=== PATIENT | female | born 1980 | race Caucasian/White ===

== ENCOUNTER 2021-11-26 08:21 | Emergency (ER) | payer BC ==
[~2021-11-26] VITALS: Ht 165.1 cm; Wt 63.5 kg
[2021-11-26] MEDS ORDERED: HYDROCODONE/APAP 5/325MG TABLET ONE (10:28)
[2021-11-26] MEDS ORDERED: LORAZEPAM 1 MG TABLET ONE (10:28)
[2021-11-26] MEDS ORDERED: LORAZEPAM 1 MG TABLET PO ONE (10:30)
[2021-11-26] MEDS ORDERED: HYDROCODONE/APAP 5/325MG TABLET PO ONE (10:30)
[2021-11-26 10:43] LABS: BASOPHILS # (AUTO) 0.1 K/uL (0.0-0.2); BASOPHILS % (AUTO) 1.4 % (0.0-2.0); EOSINOPHILS % (AUTO) 0.9 % (0.0-6.0); HEMATOCRIT 40 % (33-45); HEMOGLOBIN 13.4 g/dL (11.5-14.8); LYMPHOCYTES # (AUTO) 1.5 K/uL (0.8-4.8); LYMPHOCYTES % (AUTO) 21.9 % (20.0-44.0); MEAN CORPUSCULAR HGB CONC 34 g/dl (31.0-36.0); MEAN CORPUSCULAR VOLUME 103 fL (82-100); MONOCYTES # (AUTO) 0.7 K/uL (0.1-1.30); MONOCYTES % (AUTO) 9.5 % (2.0-12.0); NEUTROPHILS # (AUTO) 4.6 K/uL (1.8-8.9); NEUTROPHILS % (AUTO) 66.3 % (43.0-81.0); PLATELET COUNT (AUTO) 167 K/uL (150-450); RED BLOOD CELL COUNT(AUTO) 3.85 MIL/uL (4.0-5.2); WHITE BLOOD COUNT (AUTO) 6.9 K/uL (4.3-11.0)
[2021-11-26 10:55] LABS: CREATININE 0.6 mg/dL (0.6-1.3); POTASSIUM 4.7 mmol/L (3.5-5.1)
[2021-11-26] MEDS ORDERED: ALBUTEROL FS 2.5 MG/0.5 ML VIAL.NEB NEB ONE (12:30)
[2021-11-26] MEDS ORDERED: ALBUTEROL FS 2.5 MG/0.5 ML VIAL.NEB ONE (12:50)
[2021-11-26] MEDS ORDERED: LORAZEPAM INJ 2 MG/ML VIAL IV ONE ×2 (13:00→20:30)
[2021-11-26] MEDS ORDERED: LORAZEPAM INJ 2 MG/ML VIAL ONE ×2 (14:22→20:26)
[2021-11-26] MEDS ORDERED: CHLO25CA22 PO (14:55)
[2021-11-26 22:24] LABS: ALCOHOL, BLOOD < 3 mg/dL (0-0)
[2021-11-26 22:31] LABS: ACETAMINOPHEN 0 ug/ml (10-30)
[2021-11-27] MEDS ORDERED: CHLORDIAZEPOXIDE HCL 25 MG CAPSULE ONE (08:46)
[2021-11-27] MEDS ORDERED: HYDROCODONE/APAP 5/325MG TABLET ONE (08:49)
[2021-11-27] MEDS ORDERED: CHLORDIAZEPOXIDE HCL 25 MG CAPSULE PO ONE (09:00)
[2021-11-27] MEDS ORDERED: HYDROCODONE/APAP 5/325MG TABLET PO ONE (09:00)
[2021-11-27] MEDS ORDERED: LORAZEPAM 1 MG TABLET ONE (09:57)
[2021-11-27] MEDS ORDERED: LORAZEPAM 1 MG TABLET PO ONE (10:00)
[2021-11-27 16:30] VITALS: BP 136/85
== END 2021-11-27 16:30 | disposition home or self-care (01) ==
LOC: ER 08:24
DX: S22.31XA Fracture of one rib, right side, initial encounter for closed fracture (principal); X58.XXXA Exposure to other specified factors, initial encounter; Y92.89 Other specified places as the place of occurrence of the external cause; Z20.822 Contact with and (suspected) exposure to COVID-19; F10.10 Alcohol abuse, uncomplicated; F41.9 Anxiety disorder, unspecified; J45.909 Unspecified asthma, uncomplicated; G40.909 Epilepsy, unspecified, not intractable, without status epilepticus; F43.10 Post-traumatic stress disorder, unspecified; Z81.8 Family history of other mental and behavioral disorders
CPT/HCPCS: 36415; 71045; 80048; 80143; 80320; 85025; 87426; 93005; 94640; 96374; 96376; 99285; C9803; J2060 ×2; G0480

== ENCOUNTER 2021-12-02 15:24 | Emergency (ER) | payer BC ==
[~2021-12-02] VITALS: Ht 165.1 cm; Wt 63.5 kg
[~2021-12-02 15:24] MED LIST: CHLO25CA22 PO
[2021-12-02] MEDS ORDERED: LORAZEPAM INJ 2 MG/ML VIAL ONE ×2 (15:34→16:23)
--- NOTE | 2021-12-02 15:38 | NUR ---
BIB [facility] FROM APARTMENT C/O ETOH. PER EMS PATIENT WALKED DOWN FROM HER APARTMENT. PT HAVING PSEUDO-SEIZURE ENTERING ER. MD WAS AT BEDSIDE. ATIVAN 2MG GIVEN. RAC 20G IV LINE ESTABLSHED. AAOX4, BREATHING EVEN AND UNLABORED. SEIZURES PRECAUTIONS IN PLACE. ON MONITOR. WILL CONTINUE TO MONITOR.
[2021-12-02] MEDS ORDERED: ONDANSETRON HCL/PF 4 MG/2 ML VIAL ONE (15:42)
[2021-12-02 15:51] LABS: BASOPHILS # (AUTO) 0.1 K/uL (0.0-0.2); EOSINOPHILS % (AUTO) 1.8 % (0.0-6.0); HEMATOCRIT 37 % (33-45); HEMOGLOBIN 12.4 g/dL (11.5-14.8); LYMPHOCYTES # (AUTO) 2.6 K/uL (0.8-4.8); LYMPHOCYTES % (AUTO) 35.8 % (20.0-44.0); MEAN CORPUSCULAR HGB CONC 34 g/dl (31.0-36.0); MEAN CORPUSCULAR VOLUME 102 fL (82-100); MONOCYTES # (AUTO) 0.9 K/uL (0.1-1.30); MONOCYTES % (AUTO) 11.9 % (2.0-12.0); NEUTROPHILS # (AUTO) 3.6 K/uL (1.8-8.9); NEUTROPHILS % (AUTO) 49.5 % (43.0-81.0); PLATELET COUNT (AUTO) 190 K/uL (150-450); RED BLOOD CELL COUNT(AUTO) 3.58 MIL/uL (4.0-5.2); WHITE BLOOD COUNT (AUTO) 7.2 K/uL (4.3-11.0)
[2021-12-02] MEDS ORDERED: LORAZEPAM INJ 2 MG/ML VIAL IV ONE (16:00)
[2021-12-02] MEDS ORDERED: ONDANSETRON HCL/PF - ER 4 MG/2 ML VIAL IV ONE (16:00)
[2021-12-02] MEDS ORDERED: IV NS 0.9% 1,000 ML BAG IV ONE (16:00)
[2021-12-02] MEDS ORDERED: HALOPERIDOL LACTATE INJ 5 MG/ML VIAL ONE (16:22)
[2021-12-02] MEDS ORDERED: diphenhydrAMINE HCL 50 MG/ML VIAL ONE (16:22)
[2021-12-02] MEDS ORDERED: diphenhydrAMINE HCL 50 MG/ML VIAL IM ONE (16:30)
[2021-12-02] MEDS ORDERED: LORAZEPAM INJ 2 MG/ML VIAL IM ONE (16:30)
[2021-12-02] MEDS ORDERED: HALOPERIDOL LACTATE INJ 5 MG/ML VIAL IM ONE (16:30)
[2021-12-02 17:01] LABS: EOSINOPHILS % (MANUAL) 4 % (0-4); LYMPHOCYTES % (MANUAL) 33 % (16-48); MONOCYTES % (MANUAL) 10 % (0-11.0); NEUTROPHILS % (MANUAL) 53 (42-76)
[2021-12-02 17:22] LABS: CALCIUM, SERUM 8.4 mg/dL (8.5-10.1); CARBON DIOXIDE 25 mmol/L (21-32); CHLORIDE 104 mmol/L (98-107); CREATININE 0.6 mg/dL (0.6-1.3); GLUCOSE 95 mg/dL (74-106); POTASSIUM 3.7 mmol/L (3.5-5.1); SODIUM SERUM 140 mmol/L (136-145); UREA NITROGEN, BLOOD 8 mg/dL (7-18)
--- NOTE | 2021-12-02 17:35 | NUR ---
URINE COLLECTED AND SENT TO LAB
[2021-12-02 17:59] LABS: BILIRUBIN,URINE NEGATIVE (NEGATIVE); COLOR,URINE YELLOW (YELLOW); LEUKOCYTE ESTERASE ,URINE NEGATIVE (NEGATIVE); NITRITE, URINE NEGATIVE (NEGATIVE); PH,URINE 5.5 (5.0-8.0); PROTEIN,URINE NEGATIVE (NEGATIVE); UGLUCOSE NEGATIVE (NEGATIVE); UROBILINOGEN,URINE 0.2 EU/dL (0.2)
--- NOTE | 2021-12-02 18:06 | NUR ---
Jerod- [place] [phone]
[2021-12-02 18:22] LABS: BACTERIA,URINE None seen /HPF (None Seen); RBC,URINE 51-80 /HPF (0-2); SQUAMOUS EPITHELIAL CELL,UR 0-2 /HPF (None Seen); WBC,URINE 0-2 /HPF (0-3)
--- NOTE | 2021-12-02 20:12 | NUR ---
CALLED [facility] FOR PICKUP. ETA 10 MINS
--- NOTE | 2021-12-02 20:24 | NUR ---
Patient discharged to home in stable condition. Written and verbal after care instructions given. Patient verbalizes understanding of instruction. Pt picked up by friend Jerod and ambulated out of ER without incident.
[2021-12-02 20:26] VITALS: BP 112/70
[2021-12-02 21:38] LABS: ALANINE AMINOTRANSFERASE 53 U/L (12-78); ALBUMIN 3.9 g/dL (3.4-5.0); ALKALINE PHOSPHATASE 71 U/L (46-116); ASPARTATE AMINOTRANSFERASE 48 U/L (15-37); BILIRUBIN,TOTAL 0.2 mg/dL (0.2-1.0); TOTAL PROTEIN, SERUM 7.6 g/dL (6.4-8.2)
[2021-12-02 21:48] LABS: ACETAMINOPHEN < 0 ug/ml (10-30)
[2021-12-04] MEDS ORDERED: LORAZEPAM INJ 2 MG/ML VIAL ONE (23:07)
== END 2021-12-02 20:27 | disposition home or self-care (01) ==
LOC: ER 15:27
DX: R56.9 Unspecified convulsions (principal); F10.10 Alcohol abuse, uncomplicated; J45.909 Unspecified asthma, uncomplicated; F43.10 Post-traumatic stress disorder, unspecified; F41.9 Anxiety disorder, unspecified; Z98.890 Other specified postprocedural states; Z79.899 Other long term (current) drug therapy; Y90.9 Presence of alcohol in blood, level not specified
CPT/HCPCS: 36415; 80048; 80076; 80143; 80307; 80320; 81001; 84703; 85007; 85025; 96361; 96372 ×2; 96374; 96375; 99291; J1200; J1630; J2060 ×2; J2405 ×2; J7030; G0480

== ENCOUNTER 2021-12-04 18:50 | Emergency (ER) | payer BC ==
[~2021-12-04] VITALS: Ht 165.1 cm; Wt 64.0 kg
--- NOTE | 2021-12-04 19:00 | NUR ---
TABULATING CLERK AT BEDSIDE
--- NOTE | 2021-12-04 19:07 | NUR ---
BIB [facility] and [employer] officers, pt called her family saying that she wants to sleep and not wake up anymore and admitted taking valium, 2 librium and etoh. awake, aaox4, breathing even and unlabored. on monitor.
--- NOTE | 2021-12-04 19:28 | NUR ---
PT ASSISTED TO BED OLIVAREZ
--- NOTE | 2021-12-04 20:03 | NUR ---
URINE SAMPLE OBTAINED AND SENT TO LAB
[2021-12-04 20:28] LABS: BASOPHILS % (AUTO) 0.6 % (0.0-2.0); EOSINOPHILS % (AUTO) 1.6 % (0.0-6.0); HEMATOCRIT 37 % (33-45); HEMOGLOBIN 12.5 g/dL (11.5-14.8); LYMPHOCYTES # (AUTO) 2.5 K/uL (0.8-4.8); LYMPHOCYTES % (AUTO) 36.1 % (20.0-44.0); MEAN CORPUSCULAR HGB CONC 34 g/dl (31.0-36.0); MEAN CORPUSCULAR VOLUME 103 fL (82-100); MONOCYTES # (AUTO) 0.7 K/uL (0.1-1.30); MONOCYTES % (AUTO) 9.7 % (2.0-12.0); NEUTROPHILS # (AUTO) 3.7 K/uL (1.8-8.9); PLATELET COUNT (AUTO) 198 K/uL (150-450); RED BLOOD CELL COUNT(AUTO) 3.57 MIL/uL (4.0-5.2)
[2021-12-04 20:38] LABS: CALCIUM, SERUM 8.6 mg/dL (8.5-10.1); CREATININE 0.7 mg/dL (0.6-1.3); POTASSIUM 3.6 mmol/L (3.5-5.1)
[2021-12-04 20:48] LABS: BILIRUBIN,URINE NEGATIVE (NEGATIVE); COLOR,URINE YELLOW (YELLOW); LEUKOCYTE ESTERASE ,URINE NEGATIVE (NEGATIVE); NITRITE, URINE NEGATIVE (NEGATIVE); PH,URINE 5.5 (5.0-8.0); PROTEIN,URINE NEGATIVE (NEGATIVE); UGLUCOSE NEGATIVE (NEGATIVE); UROBILINOGEN,URINE 0.2 EU/dL (0.2)
[2021-12-04 20:51] LABS: BACTERIA,URINE Few /HPF (None Seen); RBC,URINE 0-2 /HPF (0-2); WBC,URINE 0-2 /HPF (0-3)
[2021-12-04 20:52] LABS: SQUAMOUS EPITHELIAL CELL,UR Few /HPF (None Seen)
[2021-12-04] MEDS ORDERED: HALOPERIDOL LACTATE INJ 5 MG/ML VIAL ONE (22:41)
[2021-12-04] MEDS ORDERED: HALOPERIDOL LACTATE INJ 5 MG/ML VIAL IM ONE (23:00)
--- NOTE | 2021-12-04 23:01 | NUR ---
PATIENT IS SHOUTING. HALDOL IM INJECTION GIVEN AT RIGHT GLUTEAL MUSCLE
--- NOTE | 2021-12-04 23:14 | NUR ---
PATIENT IS SHOUTING. ATIVAN IM INJECTION GIVEN LEFT DELTOID MUSCLE
[2021-12-04] MEDS ORDERED: LORAZEPAM INJ 2 MG/ML VIAL IM ONE (23:30)
--- NOTE | 2021-12-05 00:55 | NUR ---
EMERGENCY CONTACT: SARAH(BROTHER) [phone]. UPDATED SARAH. PT HAS APPT 12/05/20 [employer]. FOR DETOX [facility] @ [facility] [phone] CLINICAL MICROBIOLOGIST JUAN
[2021-12-05 01:33] LABS: ALBUMIN 3.5 g/dL (3.4-5.0); TOTAL PROTEIN, SERUM 6.9 g/dL (6.4-8.2)
--- NOTE | 2021-12-05 02:13 | NUR ---
ADLS DONE. PT URINATED VIA BED OLIVAREZ. SAFETY MEASURES IN PLACE
[2021-12-05 04:26] LABS: BILIRUBIN,TOTAL 0.2 mg/dL (0.2-1.0)
--- NOTE | 2021-12-05 05:23 | NUR ---
ADLS DONE. PT URINATED VIA BED OLIVAREZ. SAFETY MEASURES IN PLACE
--- NOTE | 2021-12-05 08:00 | NUR ---
THE PATIENT IS RECEIVED IN ER BED #6. THE PATIENT IS ALERT AND ORIENTED X4. DENIES PAIN. IN ROOM AIR AND DENIES SOB. RESPIRATION REGULAR AND UNLABORED. DENIES SI/HI. WARM BLANKET PROVIDED FOR COMFORT. BREAKFAST OFFERED BUT THE PATIENT REFUSED, INSTEAD THE PATIENT TOOK PO FLUIDS. ANKIT WELL. WILL CONTINUE TO MONITOR THE PATIENT. THE PATIENT IS KEPT CLEAN AND DRY.
--- NOTE | 2021-12-05 09:32 | NUR ---
pt denies any suicidal ideation, aaox4. was re evaluated by dr miranda and was cleared. family called for update and friend took her home. stable vitals.
[2021-12-05 09:47] VITALS: BP 121/65
== END 2021-12-05 09:32 | disposition home or self-care (01) ==
LOC: ER 18:58
DX: R45.851 Suicidal ideations (principal); F10.10 Alcohol abuse, uncomplicated; J45.909 Unspecified asthma, uncomplicated; F43.10 Post-traumatic stress disorder, unspecified; F41.9 Anxiety disorder, unspecified; Z98.890 Other specified postprocedural states; Z79.899 Other long term (current) drug therapy; Y90.8 Blood alcohol level of 240 mg/100 ml or more
CPT/HCPCS: 36415; 80048; 80076; 80143; 80307; 80320; 81001; 84703; 85025; 93005; 96372 ×2; 99285; J1630; G0480

== ENCOUNTER 2023-11-10 05:02 | Emergency (ER) | payer BC ==
[~2023-11-10] VITALS: Ht 165.1 cm; Wt 65.8 kg
[2023-11-10] MEDS ORDERED: MORPHINE SULFATE INJ 4 MG/ML DISP.SYRIN ONE ×2 (06:11→07:51)
[2023-11-10] MEDS ORDERED: ONDANSETRON HCL/PF 4 MG/2 ML VIAL ONE (06:11)
[2023-11-10] MEDS ORDERED: IV NS 0.9% 1,000 ML BAG IV ONE (06:30)
[2023-11-10] MEDS ORDERED: ONDANSETRON HCL/PF 4 MG/2 ML VIAL IVP ONE (06:30)
[2023-11-10] MEDS ORDERED: MORPHINE SULFATE INJ 2 MG/ML DISP.SYRIN IV ONE ×2 (06:30→08:00)
[2023-11-10 06:33] LABS: APPEARANCE,URINE CLEAR (CLEAR); BILIRUBIN,URINE NEGATIVE (NEGATIVE); BLOOD, URINE TRACE-INTA Ery/uL (NEGATIVE); COLOR,URINE YELLOW (YELLOW); KETONES,URINE NEGATIVE (NEGATIVE); LEUKOCYTE ESTERASE ,URINE NEGATIVE (NEGATIVE); NITRITE, URINE NEGATIVE (NEGATIVE); PH,URINE 6.5 (5.0-8.0); PROTEIN,URINE NEGATIVE (NEGATIVE); UGLUCOSE NEGATIVE (NEGATIVE); UROBILINOGEN,URINE 0.2 EU/dL (0.2)
[2023-11-10 06:35] LABS: ADD URINE CULTURE NO; BACTERIA,URINE Rare /HPF (None Seen); PREGNANCY TEST URINE QUAL NEGATIVE (NEGATIVE); RBC,URINE 0-2 /HPF (0-2); SQUAMOUS EPITHELIAL CELL,UR Few /HPF (None Seen); WBC,URINE 0-2 /HPF (0-3)
[2023-11-10 06:38] LABS: BASOPHILS # (AUTO) 0.1 K/uL (0.0-0.2); EOSINOPHILS # (AUTO) 0.2 K/uL (0.0-0.7); HEMATOCRIT 40 % (33-45); HEMOGLOBIN 13.7 g/dL (11.5-14.8); LYMPHOCYTES # (AUTO) 0.9 K/uL (0.8-4.8); LYMPHOCYTES % (AUTO) 13.8 % (20.0-44.0); MEAN CORPUSCULAR HEMOGLOBIN 35 PG (26.0-33.0); MEAN CORPUSCULAR HGB CONC 34 g/dl (31.0-36.0); MEAN CORPUSCULAR VOLUME 103 fL (82-100); MONOCYTES # (AUTO) 0.8 K/uL (0.1-1.30); MONOCYTES % (AUTO) 12.8 % (2.0-12.0); NEUTROPHILS # (AUTO) 4.4 K/uL (1.8-8.9); NEUTROPHILS % (AUTO) 69.4 % (43.0-81.0); PLATELET COUNT (AUTO) 170 K/uL (150-450); RED BLOOD CELL COUNT(AUTO) 3.89 MIL/uL (4.0-5.2); RED CELL DISTRIBUTION WIDTH 13.9 % (11.5-15.0); WHITE BLOOD COUNT (AUTO) 6.3 K/uL (4.3-11.0)
[2023-11-10 06:39] LABS: CALCIUM, SERUM 8.8 mg/dL (8.5-10.1); CREATININE 0.6 mg/dL (0.6-1.3); POTASSIUM 4.3 mmol/L (3.5-5.1)
[2023-11-10 06:45] LABS: ALBUMIN 3.4 g/dL (3.4-5.0); BILIRUBIN,DIRECT 0.2 mg/dL (0.0-0.2); BILIRUBIN,TOTAL 0.6 mg/dL (0.2-1.0); TOTAL PROTEIN, SERUM 7.5 g/dL (6.4-8.2)
[2023-11-10 06:51] LABS: INR 0.85 (0.91-1.10); PARTIAL THROMBOPLASTIN TIME 27.3 SEC (24.3-34.3); PROTHROMBIN TIME 9.1 SECS (9.2-11.1)
[2023-11-10] MEDS ORDERED: IOHEXOL-300 100 ML VIAL IV ONE (06:56)
[2023-11-10] MEDS ORDERED: IV NS 0.9% 250 ML IV ONE (06:56)
[2023-11-10 08:45] VITALS: BP 115/61; TEMP 98; O2SAT 98
[2023-11-10] MEDS ORDERED: FAMO-131 PO (08:53)
[2023-11-10] MEDS ORDERED: ONDA4TAB5 PO (08:53)
== END 2023-11-10 08:55 | disposition home or self-care (01) ==
LOC: ER 05:06
DX: K62.5 Hemorrhage of anus and rectum (principal); R11.2 Nausea with vomiting, unspecified; R10.84 Generalized abdominal pain; R10.2 Pelvic and perineal pain; R19.7 Diarrhea, unspecified; J45.909 Unspecified asthma, uncomplicated; F41.9 Anxiety disorder, unspecified; Z98.890 Other specified postprocedural states; Z79.899 Other long term (current) drug therapy
CPT/HCPCS: 99285; 74177; 96374; 96361; 96375; 96376; 85025; 80048; 87086; 83690; 80076; 84703; 81001; 36415; 85730; 86850; 84702; J2270 ×2; J2405; J7030; J7050; Q9967